=== PATIENT | female | born 1975 | race Caucasian/White ===

== ENCOUNTER 2021-03-26 11:45 | Emergency (ER) | payer OTHER ==
[2021-03-26] MEDS ORDERED: FENTANYL CITR 100 MCG/2 ML ONE (12:45)
[2021-03-26] MEDS ORDERED: ONDANSETRON 4 MG/2 ML VIAL ONE (12:46)
[2021-03-26 13:04] LABS: ALT/SGPT 22 U/L (12-78); AST/SGOT 10 U/L (15-37); Albumin 3.4 g/dL (3.4-5.0); BUN Blood Urea Nitrogen 8 mg/dL (7-18); Bicarbonate 26 mmol/L (21-32); Bilirubin Direct < 0.1 mg/dL (0-0.2); Glucose Level 108 mg/dL (74-106); Lipase 95 U/L (73-393); Potassium 4.1 mmol/L (3.5-5.1); Sodium Level 145 mmol/L (136-145)
[2021-03-26 13:06] LABS: Alkaline Phosphatase 87 U/L (45-117); Bilirubin Total 0.2 mg/dL (0.2-1.0); Protein, Total 6.3 g/dL (6.4-8.2)
[2021-03-26 13:09] LABS: Absolute Lymphocytes (CBC) 1.7 K/uL (0.7-4.9); Hematocrit 37.8 % (36.0-45.0); Lymphocytes % 21.7 % (15.3-44.8); MPV 9.4 fL (7.6-11.3); RBC Red Blood Cell Count 4.06 M/uL (3.86-4.86)
[2021-03-26 13:13] LABS: Urine Blood 2+ (Negative); Urine Glucose Negative (Negative); Urine Protein Negative (Negative); Urine Specific Gravity >=1.030 (1.005-1.030); Urine pH 5.5 (5.0-7.0)
--- NOTE | 2021-03-26 13:33 | RAD REPORT ---
EXAM DESCRIPTION: CT - Abdomen Pelvis W Contrast - 03/26/2021 1:20 pm CLINICAL HISTORY: Abdominal pain/right lower quadrant pain COMPARISON: 2016 TECHNIQUE: Computed axial tomography of the abdomen pelvis was obtained. 100 cc Isovue-300 was admin istered intravenously. Oral contrast was not requested which limits evaluation of bowel. All CT scans are performed using dose optimization technique as appropriate and may include automated exposure control or mA/KV adjustment according to patient size. FINDINGS: Cholecystectomy. The liver, spleen, pancreas, adrenal and kidneys appear unremarkable. There is no evidence of diverticulitis. Normal appendix No adnexal mass. Small umbilical hernia 3.5 centimeter soft tissue structure gastric cardia IMPRESSION: 3.5 centimeter soft tissue structure gastric cardia. This is a common location for a pse udo mass secondary to incomplete distention. As a true mass can also have this appearance direct visu alization is recommended
[2021-03-26 14:10] LABS: Urine Bacteria <20 /HPF (<20); Urine Mucus MOD /HPF (NONE SEEN); Urine RBC NONE SEEN /HPF (NONE SEEN)
[2021-03-26] MEDS ORDERED: KETOROLAC 30 MG/ML INJ ONE (14:16)
[2021-03-26 14:34] LABS: Urine Specific Gravity/Preg >1.030 (1.005-1.030)
--- NOTE | 2021-03-26 15:10 | ER ---
Nurse's Notes [facility] Name: Naa Fleming Age: 45 yrs Sex: Female : 1975 Arrival Date: 03/26/2021 Time: 11:46 Bed 6 Private MD: Diagnosis: Right lower quadrant abdominal tenderness;Right lower quadrant pain Presentation: 03/26 11:55 Chief complaint: Patient states: acute onset of RLQ pain that began [address] [employer]ICE[address] aa5 Ebola Screen: No symptoms or risks identified at this time. Initial Sepsis Screen: Does the patient meet any 2 criteria? HR > 90 bpm. Does the patient have a suspected source of infection? No. Patient's initial sepsis screen is negative. Risk Assessment: Do you want to hurt yourself or someone else? Patient reports no desire to harm self or others. Onset of symptoms was March 26, 2021. 11:55 Acuity: MANAS 3 aa5 11:55 Method Of Arrival: Wheelchair aa5 Triage Assessment: 12:00 General: Appears distressed, uncomfortable, Behavior is cooperative, appropriate for bp age, anxious. Pain: Complains of pain in right lower quadrant. EENT: No deficits noted. Neuro: No deficits noted. Cardiovascular: No deficits noted. Respiratory: No deficits noted. GI: Reports lower abdominal pain. : No signs and/or symptoms were reported regarding the genitourinary system. Derm: No deficits noted. Musculoskeletal: No deficits noted. Historical: - Allergies: 11:54 Codeine; aa5 - PMHx: 11:54 Bipolar disorder; Depression; Kidney Stones; aa5 - PSHx: 11:54 Cholecystectomy; aa5 - Immunization history:: Client reports receiving the 2nd dose of the Covid vaccine. - Social history:: Smoking status: Patient denies any tobacco usage or history of. Screenin:00 Abuse screen: Denies threats or abuse. Denies injuries from another. Nutritional bp screening: No deficits noted. Tuberculosis screening: No symptoms or risk factors identified. Fall Risk None identified. Assessment: 12:00 General: SEE TRIAGE NOTE. bp 14:00 Reassessment: No changes from previously documented assessment. Patient and/or family bp updated on plan of care and expected duration. Pain level reassessed. ALL CURRENT ORDERS COMPLETE. 15:23 Reassessment: PT D/C HOME AMBULATORY WITH FAMILY, DX WITH ABDOMINAL PAIN. bp Vital Signs: 11:55 BP 131 / 69; Pulse 99; Resp 18 S; Temp 97.7(TE); Pulse Ox 99% on R/A; Weight 77.11 kg aa5 (R); Height 5 ft. 5 in. (165.10 cm) (R); 13:00 BP 112 / 72; Pulse 68; Resp 17; Pulse Ox 96% ; bp 14:00 BP 95 / 44; Pulse 59; Resp 15; Pulse Ox 98% ; bp 15:23 BP 92 / 45; Pulse 63; Resp 17; Temp 97.9; Pulse Ox 100% ; bp 15:32 BP 106 / 67; Pulse 65; Resp 16; Pulse Ox 99% ; vg1 11:55 Body Mass Index 28.29 (77.11 kg, 165.10 cm) aa5 ED Course: 11:46 Patient arrived in ED. am2 11:54 Arm band placed on. aa5 11:56 Triage completed. aa5 11:57 Mansoor Diaz, MIKE is Primary Nurse. bp 11:59 Cornelio Mcconnell PA is PHCP. jr8 11:59 Kymberly Sethi MD is Attending Physician. jr8 12:00 Patient has correct armband on for positive identification. Bed in low position. Call bp light in reach. Side rails up X2. Adult w/ patient. 12:15 Inserted saline lock: 20 gauge in right antecubital area, using aseptic technique. bp Blood collected. 13:20 CT Abd/Pelvis - IV Contrast Only In Process Unspecified. EDMS 14:59 US Transvaginal Study (Probe) In Process Unspecified. EDMS 15:26 No provider procedures requiring assistance completed. IV discontinued, intact, bp bleeding controlled, No redness/swelling at site. Pressure dressing applied. Administered Medications: 12:25 Drug: fentaNYL (PF) 50 mcg Route: IVP; Site: right antecubital; bp 14:02 Follow up: Response: Pain is decreased bp 12:25 Drug: Zofran (Ondansetron) 4 mg Route: IVP; Site: right antecubital; bp 14:02 Follow up: Response: No adverse reaction bp 13:45 Drug: Ketorolac 15 mg Route: IVP; Site: right forearm; bp 15:27 Follow up: Response: No adverse reaction; Pain is decreased bp Outcome: 15:09 Discharge ordered by MD. velázquez 15:26 Discharged to home ambulatory, with family. bp 15:26 Condition: stable 15:26 Discharge instructions given to patient, Instructed on discharge instructions, follow up and referral plans. medication usage, Demonstrated understanding of instructions, follow-up care, medications, Prescriptions given X 1. 15:31 Patient left the ED. bp Signatures: Dispatcher [employer] EDMS Sugey Lucia RN RN aa5 Cornelio Mcconnell PA PA jr8 Moreno, Amanda am2 Peltier, Brian, RN RN bp Tara Earl RN RN vg1 Corrections: (The following items were deleted from the chart) 12:05 11:55 Coronavirus screen: At this time, the client does not indicate any symptoms ch5 associated with coronavirus-19. aa5
--- NOTE | 2021-03-26 15:10 | EDPHYS ---
Physician Documentation [facility] Name: Naa Fleming Age: 45 yrs Sex: Female : 1975 Arrival Date: 03/26/2021 Time: 11:46 Bed 6 Private MD: ED Physician Kymberly Sethi HPI: 03/26 14:31 This 45 yrs old Female presents to ER via Wheelchair with complaints of jr8 Abdominal Pain. 14:31 The patient presents with abdominal pain right lower quadrant. Onset: The jr8 symptoms/episode began/occurred acutely, just prior to arrival, today. The symptoms do not radiate. Associated signs and symptoms: none. The symptoms are described as stabbing. Modifying factors: The symptoms are alleviated by nothing, the symptoms are aggravated by nothing. Severity of pain: At its worst the pain was moderate in the emergency department the pain is unchanged. The patient has not experienced similar symptoms in the past. The patient has not recently seen a physician. Stated that she just started her menstrual cycle. Thought it might be cramps secondary to that but intensified too much . Historical: - Allergies: 11:54 Codeine; aa5 - PMHx: 11:54 Bipolar disorder; Depression; Kidney Stones; aa5 - PSHx: 11:54 Cholecystectomy; aa5 - Immunization history:: Client reports receiving the 2nd dose of the Covid vaccine. - Social history:: Smoking status: Patient denies any tobacco usage or history of. ROS: 14:31 Eyes: Negative for injury, pain, redness, and discharge, ENT: Negative for injury, jr8 pain, and discharge, Neck: Negative for injury, pain, and swelling, Cardiovascular: Negative for chest pain, palpitations, and edema, Respiratory: Negative for shortness of breath, cough, wheezing, and pleuritic chest pain, Back: Negative for injury and pain, MS/Extremity: Negative for injury and deformity, Skin: Negative for injury, rash, and discoloration, Neuro: Negative for headache, weakness, numbness, tingling, and seizure. 14:31 Abdomen/GI: Positive for abdominal pain, Negative for nausea, vomiting, and diarrhea, abdominal distension. Exam: 14:31 Eyes: Pupils equal round and reactive to light, extra-ocular motions intact. Lids and jr8 lashes normal. Conjunctiva and sclera are non-icteric and not injected. Cornea within normal limits. Periorbital areas with no swelling, redness, or edema. ENT: Nares patent. No nasal discharge, no septal abnormalities noted. Tympanic membranes are normal and external auditory canals are clear. Oropharynx with no redness, swelling, or masses, exudates, or evidence of obstruction, uvula midline. Mucous membranes moist. Neck: Trachea midline, no thyromegaly or masses palpated, and no cervical lymphadenopathy. Supple, full range of motion without nuchal rigidity, or vertebral point tenderness. No Meningismus. Cardiovascular: Regular rate and rhythm with a normal S1 and S2. No gallops, murmurs, or rubs. Normal PMI, no JVD. No pulse deficits. Respiratory: Lungs have equal breath sounds bilaterally, clear to auscultation and percussion. No rales, rhonchi or wheezes noted. No increased work of breathing, no retractions or nasal flaring. Back: No spinal tenderness. No costovertebral tenderness. Full range of motion. Skin: Warm, dry with normal turgor. Normal color with no rashes, no lesions, and no evidence of cellulitis. MS/ Extremity: Pulses equal, no cyanosis. Neurovascular intact. Full, normal range of motion. Neuro: Awake and alert, GCS 15, oriented to person, place, time, and situation. Cranial nerves II-XII grossly intact. Motor strength 5/5 in all extremities. Sensory grossly intact. 14:31 Constitutional: The patient appears alert, awake, in obvious pain. 14:31 Abdomen/GI: Inspection: abdomen appears normal, Bowel sounds: active, all quadrants, Palpation: soft, in all quadrants, moderate abdominal tenderness, in the right lower quadrant, mass, is not appreciated, rebound tenderness, is not appreciated, voluntary guarding, is not appreciated, involuntary guarding, is not appreciated, no appreciated organomegaly, Indicators: McBurney's point is not tender, Walters's sign is negative, Rovsing's sign is positive, Liver: tenderness, is not appreciated. Vital Signs: 11:55 BP 131 / 69; Pulse 99; Resp 18 S; Temp 97.7(TE); Pulse Ox 99% on R/A; Weight 77.11 kg aa5 (R); Height 5 ft. 5 in. (165.10 cm) (R); 13:00 BP 112 / 72; Pulse 68; Resp 17; Pulse Ox 96% ; bp 14:00 BP 95 / 44; Pulse 59; Resp 15; Pulse Ox 98% ; bp 15:23 BP 92 / 45; Pulse 63; Resp 17; Temp 97.9; Pulse Ox 100% ; bp 15:32 BP 106 / 67; Pulse 65; Resp 16; Pulse Ox 99% ; vg1 11:55 Body Mass Index 28.29 (77.11 kg, 165.10 cm) aa5 MDM: 11:59 Patient medically screened. jr8 15:07 Data reviewed: vital signs, nurses notes, lab test result(s), radiologic studies, CT jr8 scan, ultrasound. Data interpreted: Pulse oximetry: on room air is 98 %. Interpretation: normal. Counseling: I had a detailed discussion with the patient and/or guardian regarding: the historical points, exam findings, and any diagnostic results supporting the discharge/admit diagnosis, lab results, radiology results, the need for outpatient follow up, a family practitioner, to return to the emergency department if symptoms worsen or persist or if there are any questions or concerns that arise at home. ED course: Discussed with patient that there was no acute findings on CT or US. That she would need to f/u with GI for possible further evaluation of the gastric region. Patients labs stable. Patient overall feeling better. Will d/c home to f/u with PCP. Close return precautions given . 03/26 11:59 Order name: Basic Metabolic Panel; Complete Time: 13:12 jr8 03/26 11:59 Order name: CBC with Diff; Complete Time: 13:15 jr8 03/26 11:59 Order name: Hepatic Function; Complete Time: 13:12 8 03/26 11:59 Order name: Lipase; Complete Time: 13:12 jr8 03/26 12:15 Order name: Urine Microscopic Only; Complete Time: 14:16 jr8 03/26 13:13 Order name: Urine Dipstick-Ancillary; Complete Time: 13:15 EDMS 03/26 11:59 Order name: IV Saline Lock; Complete Time: 12:22 jr03/26 11:59 Order name: Labs collected and sent; Complete Time: 12:22 jr8 03/26 12:23 Order name: CT Abd/Pelvis - IV Contrast Only; Complete Time: 13:38 jr8 03/26 13:14 Order name: Urine --Ancillary (enter results); Complete Time: 14:38 bd 03/26 14:20 Order name: US Transvaginal Study (Probe); Complete Time: 15:12 jr8 03/26 12:15 Order name: Urine Dipstick-Ancillary (obtain specimen); Complete Time: 14:01 jr8 03/26 12:15 Order name: Urine Test (obtain specimen); Complete Time: 14:01 jr8 Administered Medications: 12:25 Drug: fentaNYL (PF) 50 mcg Route: IVP; Site: right antecubital; bp 14:02 Follow up: Response: Pain is decreased bp 12:25 Drug: Zofran (Ondansetron) 4 mg Route: IVP; Site: right antecubital; bp 14:02 Follow up: Response: No adverse reaction bp 13:45 Drug: Ketorolac 15 mg Route: IVP; Site: right forearm; bp 15:27 Follow up: Response: No adverse reaction; Pain is decreased bp Disposition: 03/27 08:56 Co-signature as Attending Physician, Kymberly Sethi MD I agree with the assessment and sp3 plan of care. Disposition Summary: 03/26/21 15:09 Discharge Ordered Location: Home jr8 Problem: new jr8 Symptoms: have improved jr8 Condition: Stable jr8 Diagnosis - Right lower quadrant abdominal tenderness jr8 - Right lower quadrant pain jr8 Followup: jr8 - With: Private Physician - When: 2 - 3 days - Reason: Recheck today's complaints, Continuance of care, Re-evaluation by your physician Discharge Instructions: - Discharge Summary Sheet jr8 - Abdominal Pain, Adult jr8 Forms: - Medication Reconciliation Form jr8 - Thank You Letter jr8 - Work release form jr8 - Antibiotic Education jr8 - Prescription Opioid Use jr8 Prescriptions: - Ibuprofen 800 mg Oral Tablet - take 1 tablet by ORAL route every 12 hours As needed take with food; 20 tablet; jr8 Refills: 0, Product Selection Permitted Signatures: Dispatcher [employer] Sugey Houston RN RN aa5 Cornelio Mcconnell PA PA jr8 Mansoor Diaz RN RN bp Patel, Setul, MD MD sp3 Corrections: (The following items were deleted from the chart) 10/25 14:32 14:31 Abdomen/GI: Positive for abdominal pain, Negative for nausea, vomiting, and jr8 diarrhea, abdominal distension, jr8
--- NOTE | 2021-03-26 15:12 | RAD REPORT ---
EXAM DESCRIPTION: US - Transvaginal Study Probe - 03/26/2021 3:00 pm CLINICAL HISTORY: Pelvic pain COMPARISON: March 26, 2021 cat scan FINDINGS: The uterus measures 7 x 5 x 5cm. A fibroid is not seen. Endometrial stripe measures 1 cent imeter The ovaries are normal in size and echotexture. Normal blood flow Right and left adnexal unremarkable No significant free fluid is seen. IMPRESSION: Unremarkable pelvic ultrasound
[2021-03-26 15:56] VITALS: BP 92/45; TEMP 97.9; O2SAT 100
== END 2021-03-26 15:31 | disposition home or self-care (01) ==
LOC: ER 11:45
DX: R10.813 Right lower quadrant abdominal tenderness (principal); Z88.5 Allergy status to narcotic agent
CPT/HCPCS: 85025; 80048; 36415; 81025; 80076; 83690; 74177; 76830; 99284; Q9967; J3010; J2405; 81003; 81015